=== PATIENT | female | born 1985 | race Caucasian/White ===

== ENCOUNTER 2020-10-01 10:51 | Day surgery (SDC) | payer OTHER ==
[2020-09-28 12:40] LABS: COVID AG,FIA SOURCE NASOPHARYNGEAL
[~2020-10-01] VITALS: Ht 167.6 cm; Wt 46.8 kg
[~2020-10-01 10:51] MED LIST: RINGERS SOLUTION,LACTATED 1,000 ML IV ONE
[2020-10-01] MEDS ORDERED: BUPIVACAINE LIPOSOME/PF 1.3%-13.3MG/ML SUSPENSION 20 ML VIAL INJ ONE (11:15)
[2020-10-01] MEDS ORDERED: EPINEPHrine 1:1,000 [1 MG/ML] AMP ONE (11:50)
[2020-10-01] MEDS ORDERED: BUPIVACAINE HCL/PF 0.5% 30 ML VIAL ONE (11:51)
[2020-10-01] MEDS ORDERED: BUPIVACAINE HCL/PF 0.25% 30 ML VIAL ONE (11:51)
[2020-10-01] MEDS ORDERED: MIDAZOLAM HCL 2 MG/2 ML VIAL IVP ONE (12:00)
[2020-10-01] MEDS ORDERED: ROCURONIUM BROMIDE 10 MG/ML 5 ML VIAL IVP ONE (12:00)
[2020-10-01] MEDS ORDERED: FentaNYL CITRATE PF 100 MCG/2 ML VIAL IVP ONE (12:00)
[2020-10-01] MEDS ORDERED: LIDOCAINE/PF 2% 5 ML VIAL IM ONE (12:00)
[2020-10-01] MEDS ORDERED: PROPOFOL 1% 20 ML VIAL IVP ONE (12:00)
[2020-10-01] MEDS ORDERED: ALBUTEROL SULFATE HFA 90 MCG/PUFF 8 GM INHALER IH ONE (12:00)
[2020-10-01] MEDS ORDERED: HYDROmorphone 2 MG/ML VIAL IVP ONE (12:00)
[2020-10-01] MEDS ORDERED: SODIUM CL IRRIG SOLN BAG 12,000 ML IRRIG ONE (14:31)
[2020-10-01] MEDS ORDERED: ACETAMINOPHEN 1000 MG/ISO-OSM 100 ML IV ONE (15:30)
[2020-10-01] MEDS ORDERED: HYDROmorphone 2 MG/ML VIAL IVP PRN ×3 (15:30)
[2020-10-01] MEDS ORDERED: ONDANSETRON HCL 4 MG/2 ML VIAL IVP PRN (15:30)
== END 2020-10-01 18:20 | disposition home or self-care (01) ==
LOC: SURGERY 10:51
PROVIDERS: ATTEND Orthopaedic Surgery
DX: S73.192A Other sprain of left hip, initial encounter (principal); F32.9 Major depressive disorder, single episode, unspecified; X58.XXXA Exposure to other specified factors, initial encounter; Y93.89 Activity, other specified; Y92.89 Other specified places as the place of occurrence of the external cause; Y99.8 Other external cause status; Z79.899 Other long term (current) drug therapy
CPT/HCPCS: 29915; 36415; 84702; 87426; C1713; C9290; C9803; J0171; J0690; J1170; J2250; J2704; J3010; J3490 ×3; J7120; J3535